=== PATIENT | female | born 1975 | race Hispanic/Latino ===

== ENCOUNTER 2021-05-12 12:46 | Outpatient (CLI) | payer OTHER ==
[2021-05-12 14:14] LABS: #Eosinphils 0.1 10x3/uL (0.0-0.5); #Monocytes 0.6 10x3/uL (0.0-1.1); #Neutrophils 3.7 10x3/uL (1.5-8.4); %Basophils 0.4 % (0.0-2.0); %Eosinophils 0.7 % (0.0-6.0); %Lymphocytes 37.7 % (18.0-47.0); %Monocytes 8.8 % (0.0-10.0); %Neutrophils 52.3 % (40.0-75.0); Mean Corpuscular HGB CONC 34.3 g/dL (32.0-36.0); Mean Corpuscular Hemoglobin 29.4 pg (27.0-33.0); Mean Corpuscular Volume 85.8 fl (81.6-98.3); Mean Platelet Volume 10.5 fl (7.4-10.4); Platelet Count 199 10x3/uL (150-450); RBC Distribution Width 13.2 % (11.5-14.5); Red Blood Cell (RBC) Count 4.08 10x6/uL (3.90-5.03); White Blood Cell (WBC) Count 7.1 10x3/uL (3.5-10.5)
[2021-05-12 14:52] LABS: ALT (SGPT) 15 U/L (8-55); AST (SGOT) 19 U/L (5-34); Albumin 4.2 g/dL (3.5-5.0); Alkaline Phosphatase 54 U/L (40-110); Anion Gap 14 mmol/L (10-20); BUN (Urea Nitrogen) 12 mg/dL (7.0-18.7); Bilirubin, Total 0.4 mg/dL (0.2-1.2); Calc. Creatinine Clearance 0 mL/min (70-130); Calcium 9.6 mg/dL (7.8-10.44); Carbon Dioxide 24 mmol/L (22-29); Chloride 106 mmol/L (98-107); Globulin 2.8 g/dL (2.4-3.5); Glucose 74 mg/dL (70-105); Potassium 3.7 mmol/L (3.5-5.1); Sodium 140 mmol/L (136-145)
[2021-05-13 21:36] LABS: SARS-CoV-2 PCR by NAA Not Detected (NotDetected)
== END 2021-05-12 12:47 | disposition home or self-care (01) ==
LOC: LABBT 12:46
PROVIDERS: ATTEND Specialist
DX: Z01.818 Encounter for other preprocedural examination (principal); K80.20 Calculus of gallbladder without cholecystitis without obstruction; Z87.19 Personal history of other diseases of the digestive system; K81.9 Cholecystitis, unspecified; Z20.822 Contact with and (suspected) exposure to COVID-19
CPT/HCPCS: 80053; 85025; 93005; 93010; U0003; U0005

== ENCOUNTER 2021-05-17 06:57 | Day surgery (SDC) | payer OTHER ==
[2021-05-12 14:47] VITALS: BMI 28.6
[2021-05-17] MEDS ORDERED: Lidocaine 1% w/Epinephrine 1:100K 30 ML VIAL ONE (07:12)
[2021-05-17] MEDS ORDERED: Bupivacaine 0.25% HCL 30 ML VIAL ONE (07:12)
[2021-05-17] MEDS ORDERED: Iothalamate Meglumine 60% 50 ML VIAL FS ONE ×2 (07:12→10:00)
[2021-05-17] MEDS ORDERED: Levofloxacin 500 mg/D5W 100 ml Premix Bag ONE (07:32)
[2021-05-17] MEDS ORDERED: Acetaminophen 500 MG TAB ONE (07:32)
[2021-05-17] MEDS ORDERED: Scopolamine 1.5 mg/72 hour Patch ONE (07:32)
[2021-05-17] MEDS ORDERED: Ketorolac Tromethamine 30 MG/ML VIAL ONE (07:32)
[2021-05-17] MEDS ORDERED: Lidocaine 2% Jelly 5 ML TUBE ONE (09:09)
[2021-05-17] MEDS ORDERED: Fentanyl 100 MCG/2 ML VIAL ONE ×2 (09:09→10:31)
[2021-05-17] MEDS ORDERED: Rocuronium Bromide 10 MG/ML (10ML VIAL) ONE (09:20)
[2021-05-17] MEDS ORDERED: Lidocaine 1% PF 5 ML VIAL ONE (09:20)
[2021-05-17] MEDS ORDERED: ePHEDrine 50 MG/ML VIAL ONE (09:20)
[2021-05-17] MEDS ORDERED: Ondansetron PF 4 MG/2 ML Vial ONE (09:20)
[2021-05-17] MEDS ORDERED: PROPOFOL 200 MG/20 ML VIAL ONE (09:20)
[2021-05-17] MEDS ORDERED: Glycopyrrolate 0.2 MG/ML 5 ML SYRINGE ONE ×2 (09:20)
[2021-05-17] MEDS ORDERED: HYDROcodone/Acetaminophen 5/325 mg Tablet ONE (12:29)
[2021-05-17] MEDS ORDERED: Promethazine HCl 25 MG/ML VIAL ONE (13:08)
== END 2021-05-17 14:00 | disposition home or self-care (01) ==
LOC: SDC 06:57
PROVIDERS: ATTEND Specialist
PROC: 0FT44ZZ Resection of Gallbladder, Percutaneous Endoscopic Approach (ICD-10-PCS; principal; 2021-05-17)
PROC: BF101ZZ Fluoroscopy of Bile Ducts using Low Osmolar Contrast (ICD-10-PCS; principal; 2021-05-17)
DX: K80.10 Calculus of gallbladder with chronic cholecystitis without obstruction (principal); K83.8 Other specified diseases of biliary tract; I10 Essential (primary) hypertension; Z79.899 Other long term (current) drug therapy
CPT/HCPCS: 47532; 88304; J1610; J1885; J1956; J2405; J2550; J2704; J3010; J3490; Q9961; S0020